=== PATIENT | male | born 1930 | race Two or more races ===

== ENCOUNTER 2020-04-18 20:44 | Inpatient (IN) | payer MEDICARE, MEDICAID ==
[~2020-04-18] VITALS: Ht 185.4 cm; Wt 69.6 kg
[2020-04-18] MEDS ORDERED: ONDANSETRON HCL 4 MG/2 ML VIAL IVP PRN ×2 (22:00→22:15)
[2020-04-18] MEDS ORDERED: 0.9% SODIUM CHLORIDE 10 ML SYRINGE IVP PRN (22:00)
[2020-04-18] MEDS ORDERED: ACETAMINOPHEN 325 MG TABLET PO PRN ×2 (22:00→22:15)
[2020-04-18] MEDS ORDERED: MAGNESIUM HYDROXIDE SUSPENSION 30 ML UDCUP PO PRN (22:15)
[2020-04-18] MEDS ORDERED: MORPHINE SULFATE 2 MG/ML SYRINGE IVP PRN (22:15)
[2020-04-18] MEDS ORDERED: BISACODYL 10 MG RECTAL RECTAL SUPPOSITORY PR PRN (22:15)
[2020-04-18] MEDS ORDERED: HYDROCODONE/ACETAMINOPHEN 5-325 MG TABLET PO PRN (22:15)
[2020-04-18] MEDS ORDERED: ZOLPIDEM TARTRATE 5 MG TABLET PO PRN (22:15)
[2020-04-18 23:19] LABS: BASOPHILS % (AUTO) 0.2 % (0.0-2.0); EOSINOPHILS % (AUTO) 0 % (1.0-6.0); HEMOGLOBIN 18.8 g/dL (13.5-17.5); LYMPHOCYTES # (AUTO) 0.9 K/uL (1.0-4.8); LYMPHOCYTES % (AUTO) 4.4 % (22.0-44.0); MEAN CORPUSCULAR HEMOGLOBIN 29.1 pg (26.0-34.0); MEAN CORPUSCULAR HGB CONC 31.6 G/dL (31.0-37.0); MEAN CORPUSCULAR VOLUME 92 fL (80-100); MONOCYTES # (AUTO) 1.1 K/uL (0.1-1.0); MONOCYTES % (AUTO) 5.1 % (2.0-9.0); NEUTROPHILS # (AUTO) 18.6 K/uL (1.8-7.7); RED BLOOD CELL COUNT(AUTO) 6.48 MIL/uL (4.50-5.90); RED CELL DISTRIBUTION WIDTH 14.9 % (11.5-14.5)
[2020-04-18 23:24] LABS: HEMATOCRIT 59.5 % (41-53); NEUTROPHILS % (AUTO) 90.3 % (40.0-70.0)
[2020-04-18 23:44] LABS: C-REACTIVE PROTEIN QUANT 2.22 mg/dL (0.00-0.30); CALCIUM, TOTAL 8.6 mg/dL (8.8-10.5); CREATININE 2.95 mg/dL (0.60-1.30); POTASSIUM 3.6 mmol/L (3.5-5.1)
[2020-04-19] VITALS (9 sets, daily range): BP systolic 106–122; BP diastolic 54–72
[2020-04-19] MEDS ORDERED: HEPARIN SODIUM,PORCINE 5,000 UNITS/ML VIAL SQ SCH
[2020-04-19 00:26] LABS: PLATELET COUNT (AUTO) 102 K/uL (150-450)
[2020-04-19 00:37] LABS: ABG A-A DIFF O2 135.5 mmHg (10-20.0); ABG BASE EXCESS -2.3 mmol/L (-2.0-3.0); ABG CARBOXYHEMOGLOBIN 0.3 % (0.0-1.5); ABG HCO3 22.9 mmol/L (22.0-26.0); ABG METHEMOGLOBIN 0.6 % (0.0-1.5); ABG OXYGEN CONTENT 27.9 mL/dL (15.0-23.0); ABG OXYGEN SATURATION 96.2 % (95.0-98.0); ABG OXYHEMOGLOBIN 95.3 % (94.0-100.0); ABG PCO2 38 mmHg (35-45); ABG PH 7.389 (7.35-7.450); PO2, ARTERIAL BG 76.9 mmHg (71.0-79.0); SOURCE, BLOOD GAS ARTERIAL; TEMPERATURE, FAHRENHEIT, BG 98.3 FAHREN (96.0-98.6)
[2020-04-19 00:39] LABS: ABG TOTAL HEMOGLOBIN 20.9 G/dL (12.0-18.0); SITE, BLOOD GAS LFT RADIAL
[2020-04-19 00:40] LABS: O2 DEVICE,BLOOD GAS CANNULA (ROOM AIR)
[2020-04-19] MEDS: DEXTROSE 5%-WATER 1,000 ML IV SCH ×2 (01:35→16:41)
[2020-04-19] MEDS ORDERED: HEPARIN SODIUM 25000 UNITS/D5W 250 ML IV PRN (07:35)
[2020-04-19] MEDS ORDERED: HEPARIN SODIUM,PORCINE 5,000 UNITS/ML VIAL IVP PRN ×2 (07:45)
[2020-04-19] MEDS: DOCUSATE SODIUM 100 MG CAPSULE PO SCH ×2 (09:00→21:00)
[2020-04-19] MEDS: ASCORBIC ACID 500 MG TABLET PO SCH ×3 (09:00→21:00)
[2020-04-19] MEDS ORDERED: AZITHROMYCIN 500 MG TABLET PO SCH (09:00)
[2020-04-19] MEDS ORDERED: PANTOPRAZOLE SODIUM 40 MG DR TABLET PO SCH (09:00)
[2020-04-19] MEDS: ZINC SULFATE 220 MG CAPSULE PO SCH ×2 (09:00→21:00)
[2020-04-19 09:06] LABS: INR 1.7 (0.9-1.1); PROTHROMBIN TIME 17.2 SEC (9.4-11.6)
[2020-04-19 09:09] LABS: GLUCOSE,POINT OF CARE 169 MG/DL (70-110)
[2020-04-19 09:11] LABS: HEMOGLOBIN 18.7 g/dL (13.5-17.5); RED BLOOD CELL COUNT(AUTO) 6.47 MIL/uL (4.50-5.90)
[2020-04-19 09:12] LABS: BASOPHILS % (AUTO) 0.4 % (0.0-2.0); EOSINOPHILS % (AUTO) 0.2 % (1.0-6.0); HEMATOCRIT 63.7 % (41-53); LYMPHOCYTES % (AUTO) 4.1 % (22.0-44.0); MEAN CORPUSCULAR HEMOGLOBIN 28.9 pg (26.0-34.0); MEAN CORPUSCULAR HGB CONC 31.4 G/dL (31.0-37.0); MEAN CORPUSCULAR VOLUME 92 fL (80-100); MONOCYTES % (AUTO) 6.1 % (2.0-9.0); NEUTROPHILS % (AUTO) 89.2 % (40.0-70.0); PLATELET COUNT (AUTO) 101 K/uL (150-450)
[2020-04-19 09:13] LABS: LYMPHOCYTES # (AUTO) 0.9 K/uL (1.0-4.8); MONOCYTES # (AUTO) 1.3 K/uL (0.1-1.0); NEUTROPHILS # (AUTO) 18.4 K/uL (1.8-7.7)
[2020-04-19] MEDS: THIAMINE 100 MG/ML 2 ML VIAL IVP SCH ×2 (10:36→21:00)
[2020-04-19] MEDS: PANTOPRAZOLE SODIUM 40 MG/VIAL IVP SCH (10:36)
[2020-04-19] MEDS: AZITHROMYCIN 500 MG/NS 250 ML IV SCH (10:36)
[2020-04-19 11:09] LABS: ALBUMIN 2.9 g/dL (3.4-5.0); C-REACTIVE PROTEIN QUANT 3.59 mg/dL (0.00-0.30); CALCIUM, TOTAL 9.1 mg/dL (8.8-10.5); CREATININE 2.45 mg/dL (0.60-1.30); MAGNESIUM 2.8 mg/dL (1.80-2.40); PHOSPHORUS 2.7 mg/dL (2.5-4.9); POTASSIUM 3.7 mmol/L (3.5-5.1); TOTAL PROTEIN, SERUM 6.8 g/dL (6.4-8.2)
[2020-04-19 12:01] LABS: GLUCOSE,POINT OF CARE 167 MG/DL (70-110)
[2020-04-19 12:04] LABS: BILIRUBIN,URINE NEGATIVE (NEGATIVE); CREATININE,URINE RANDOM 104.3 mg/dL (30.0-125.0); GLUCOSE, URINE (UA) NEGATIVE (NEGATIVE); KETONES,URINE NEGATIVE (NEGATIVE); LEUKOCYTE ESTERASE ,URINE NEGATIVE (NEGATIVE); NITRATE,URINE NEGATIVE (NEGATIVE); PROTEIN,URINE POS 1+ (NEGATIVE); SODIUM,URINE RANDOM 34 mmol/l (20-110); UREA NITROGEN,URINE RANDOM 1319 mg/dL (350-1000); UROBILINOGEN,URINE 0.2 mg/dL (<=1.0)
[2020-04-19 12:07] LABS: APPEARANCE,URINE HAZY (CLEAR); OCCULT BLOOD,URINE MODERATE (NEGATIVE)
[2020-04-19 12:08] LABS: BACTERIA,URINE Rare /HPF (None Seen); TRANSITIONAL EPI CELLS,URINE Rare /LPF (None Seen); WBC,URINE 0-2 /HPF (0-5)
[2020-04-19 19:19] LABS: GLUCOSE,POINT OF CARE 182 MG/DL (70-110)
[2020-04-19 21:11] LABS: CREATININE 1.97 mg/dL (0.60-1.30); POTASSIUM 3.6 mmol/L (3.5-5.1)
[2020-04-19 21:12] LABS: CALCIUM, TOTAL 9.1 mg/dL (8.8-10.5); MAGNESIUM 2.7 mg/dL (1.80-2.40); PHOSPHORUS 2.2 mg/dL (2.5-4.9)
[2020-04-20] VITALS (20 sets, daily range): BP systolic 103–127; BP diastolic 50–76
[2020-04-20] MEDS: DEXTROSE 5%-WATER 1,000 ML IV SCH ×3 (00:02→21:52)
[2020-04-20 06:55] LABS: BASOPHILS % (AUTO) 0.3 % (0.0-2.0); EOSINOPHILS % (AUTO) 0.5 % (1.0-6.0); HEMATOCRIT 54.1 % (41-53); HEMOGLOBIN 17.4 g/dL (13.5-17.5); LYMPHOCYTES # (AUTO) 0.9 K/uL (1.0-4.8); LYMPHOCYTES % (AUTO) 5.3 % (22.0-44.0); MEAN CORPUSCULAR HGB CONC 32.2 G/dL (31.0-37.0); MEAN CORPUSCULAR VOLUME 90 fL (80-100); MONOCYTES # (AUTO) 0.8 K/uL (0.1-1.0); NEUTROPHILS # (AUTO) 14.4 K/uL (1.8-7.7); RED BLOOD CELL COUNT(AUTO) 6.01 MIL/uL (4.50-5.90)
[2020-04-20 07:02] LABS: NEUTROPHILS % (AUTO) 88.9 % (40.0-70.0)
[2020-04-20 07:46] LABS: CALCIUM, TOTAL 8.7 mg/dL (8.8-10.5); CREATININE 1.57 mg/dL (0.60-1.30); MAGNESIUM 2.5 mg/dL (1.80-2.40); PHOSPHORUS 1.8 mg/dL (2.5-4.9); POTASSIUM 3.4 mmol/L (3.5-5.1)
[2020-04-20] MEDS ORDERED: POTASSIUM PHOS,M-BASIC-D-BASIC 10 MEQ in DEXTROSE 5%-WATER 100 ML IV ONE (08:45)
[2020-04-20 08:49] LABS: PLATELET COUNT (AUTO) 92 K/uL (150-450)
[2020-04-20] MEDS: PANTOPRAZOLE SODIUM 40 MG/VIAL IVP SCH (08:56)
[2020-04-20] MEDS: DOCUSATE SODIUM 100 MG CAPSULE PO SCH ×2 (09:00→21:00)
[2020-04-20] MEDS: ZINC SULFATE 220 MG CAPSULE PO SCH ×2 (09:00→21:00)
[2020-04-20] MEDS: ASCORBIC ACID 500 MG TABLET PO SCH ×3 (09:30→21:00)
[2020-04-20] MEDS: THIAMINE 100 MG/ML 2 ML VIAL IVP SCH ×2 (09:30→21:52)
[2020-04-20 09:57] LABS: D-DIMER 15.88 mg/L FEU (0.00-0.50)
[2020-04-20 10:02] LABS: C-REACTIVE PROTEIN QUANT 2.07 mg/dL (0.00-0.30)
[2020-04-20] MEDS: AZITHROMYCIN 500 MG/NS 250 ML IV SCH (12:22)
[2020-04-20 20:24] LABS: CALCIUM, TOTAL 8.3 mg/dL (8.8-10.5); CREATININE 1.39 mg/dL (0.60-1.30); POTASSIUM 3.5 mmol/L (3.5-5.1)
[2020-04-20 20:28] LABS: MAGNESIUM 2.3 mg/dL (1.80-2.40); PHOSPHORUS 2.5 mg/dL (2.5-4.9)
[2020-04-21] VITALS (24 sets, daily range): BP systolic 92–152; BP diastolic 46–72
[2020-04-21] MEDS: DEXTROSE 5%-WATER 1,000 ML IV SCH ×2 (06:38→16:55)
[2020-04-21 06:54] LABS: CALCIUM, TOTAL 8.2 mg/dL (8.8-10.5); CREATININE 1.3 mg/dL (0.60-1.30); MAGNESIUM 2.1 mg/dL (1.80-2.40); PHOSPHORUS 2.3 mg/dL (2.5-4.9); POTASSIUM 3.3 mmol/L (3.5-5.1)
[2020-04-21 07:07] LABS: D-DIMER 18.17 mg/L FEU (0.00-0.50)
[2020-04-21 07:26] LABS: GLUCOSE,POINT OF CARE 117 MG/DL (70-110)
[2020-04-21] MEDS ORDERED: POTASSIUM PHOS,M-BASIC-D-BASIC 20 MEQ in DEXTROSE 5%-WATER 100 ML IV ONE (08:45)
[2020-04-21] MEDS: ZINC SULFATE 220 MG CAPSULE PO SCH ×2 (09:00→21:00)
[2020-04-21] MEDS: ASCORBIC ACID 500 MG TABLET PO SCH ×3 (09:00→21:00)
[2020-04-21] MEDS: DOCUSATE SODIUM 100 MG CAPSULE PO SCH ×2 (09:00→21:00)
[2020-04-21] MEDS: HEPARIN SODIUM,PORCINE 5,000 UNITS/ML VIAL SQ SCH ×2 (09:00→21:00)
[2020-04-21] MEDS: PANTOPRAZOLE SODIUM 40 MG/VIAL IVP SCH (09:23)
[2020-04-21 09:25] LABS: BASOPHILS % (AUTO) 0.1 % (0.0-2.0); EOSINOPHILS % (AUTO) 1.1 % (1.0-6.0); HEMATOCRIT 46.7 % (41-53); HEMOGLOBIN 15.3 g/dL (13.5-17.5); LYMPHOCYTES # (AUTO) 0.8 K/uL (1.0-4.8); LYMPHOCYTES % (AUTO) 7.4 % (22.0-44.0); MEAN CORPUSCULAR HEMOGLOBIN 29.5 pg (26.0-34.0); MEAN CORPUSCULAR HGB CONC 32.9 G/dL (31.0-37.0); MEAN CORPUSCULAR VOLUME 90 fL (80-100); MONOCYTES # (AUTO) 0.5 K/uL (0.1-1.0); MONOCYTES % (AUTO) 4.2 % (2.0-9.0); NEUTROPHILS # (AUTO) 9.7 K/uL (1.8-7.7); PLATELET COUNT (AUTO) 76 K/uL (150-450); RED CELL DISTRIBUTION WIDTH 14.9 % (11.5-14.5)
[2020-04-21 09:43] LABS: NEUTROPHILS % (AUTO) 87.2 % (40.0-70.0)
[2020-04-21 09:44] LABS: ALBUMIN 2.4 g/dL (3.4-5.0); BILIRUBIN,TOTAL 2.4 mg/dL (0.1-1.0); CALCIUM, TOTAL 8.2 mg/dL (8.8-10.5); CREATININE 1.24 mg/dL (0.60-1.30); POTASSIUM 3.3 mmol/L (3.5-5.1); TOTAL PROTEIN, SERUM 5.5 g/dL (6.4-8.2)
[2020-04-21] MEDS: AZITHROMYCIN 500 MG/NS 250 ML IV SCH (11:20)
[2020-04-21] MEDS: THIAMINE 100 MG/ML 2 ML VIAL IVP SCH ×2 (11:20→21:10)
[2020-04-21 17:14] LABS: GLUCOSE,POINT OF CARE 107 MG/DL (70-110)
[2020-04-22 00:01] VITALS: BP 142/59
[2020-04-22 01:52] VITALS: BP 119/63
[2020-04-22 03:12] VITALS: BP 156/107
[2020-04-22] MEDS: DEXTROSE 5%-WATER 1,000 ML IV SCH ×2 (05:50→21:52)
[2020-04-22] MEDS: ASCORBIC ACID 500 MG TABLET PO SCH ×3 (09:00→21:00)
[2020-04-22] MEDS: ZINC SULFATE 220 MG CAPSULE PO SCH ×2 (09:00→21:00)
[2020-04-22] MEDS: DOCUSATE SODIUM 100 MG CAPSULE PO SCH ×2 (09:00→21:00)
[2020-04-22] MEDS: PANTOPRAZOLE SODIUM 40 MG/VIAL IVP SCH (09:23)
[2020-04-22] MEDS: HEPARIN SODIUM,PORCINE 5,000 UNITS/ML VIAL SQ SCH ×2 (09:23→21:00)
[2020-04-22] MEDS: THIAMINE 100 MG/ML 2 ML VIAL IVP SCH ×2 (09:23→21:00)
[2020-04-22 09:45] VITALS: BP 131/77
[2020-04-22 11:29] LABS: D-DIMER 26.19 mg/L FEU (0.00-0.50)
[2020-04-22 11:52] LABS: C-REACTIVE PROTEIN QUANT 1.17 mg/dL (0.00-0.30); CALCIUM, TOTAL 8.3 mg/dL (8.8-10.5); CREATININE 1.17 mg/dL (0.60-1.30); PHOSPHORUS 2.1 mg/dL (2.5-4.9); POTASSIUM 3.5 mmol/L (3.5-5.1)
[2020-04-22] MEDS: AZITHROMYCIN 500 MG/NS 250 ML IV SCH (12:18)
[2020-04-22] MEDS ORDERED: SODIUM PHOS,M-BASIC-D-BASIC 20 MMOL in DEXTROSE 5%-WATER 150 ML IV ONE (13:30)
[2020-04-22 16:31] LABS: CREATININE,URINE RANDOM 31.9 mg/dL (30.0-125.0)
[2020-04-22 21:14] VITALS: BP 110/64
[2020-04-23 01:07] VITALS: BP 155/81
[2020-04-23 05:31] VITALS: BP 167/61
[2020-04-23] MEDS: ZINC SULFATE 220 MG CAPSULE PO SCH ×2 (09:00→20:41)
[2020-04-23] MEDS: DOCUSATE SODIUM 100 MG CAPSULE PO SCH ×2 (09:00→20:41)
[2020-04-23] MEDS: ASCORBIC ACID 500 MG TABLET PO SCH ×3 (09:00→20:41)
[2020-04-23 09:03] LABS: BASOPHILS % (AUTO) 0.2 % (0.0-2.0); EOSINOPHILS % (AUTO) 1.9 % (1.0-6.0); HEMOGLOBIN 14.8 g/dL (13.5-17.5); LYMPHOCYTES # (AUTO) 0.8 K/uL (1.0-4.8); LYMPHOCYTES % (AUTO) 8.1 % (22.0-44.0); MEAN CORPUSCULAR HEMOGLOBIN 29.7 pg (26.0-34.0); MEAN CORPUSCULAR HGB CONC 33.6 G/dL (31.0-37.0); MEAN CORPUSCULAR VOLUME 89 fL (80-100); MONOCYTES # (AUTO) 0.8 K/uL (0.1-1.0); MONOCYTES % (AUTO) 8.6 % (2.0-9.0); NEUTROPHILS # (AUTO) 7.5 K/uL (1.8-7.7); NEUTROPHILS % (AUTO) 81.2 % (40.0-70.0); PLATELET COUNT (AUTO) 95 K/uL (150-450); RED BLOOD CELL COUNT(AUTO) 4.98 MIL/uL (4.50-5.90); RED CELL DISTRIBUTION WIDTH 14.2 % (11.5-14.5)
[2020-04-23 09:09] VITALS: BP 155/67
[2020-04-23] MEDS: PANTOPRAZOLE SODIUM 40 MG/VIAL IVP SCH (09:23)
[2020-04-23] MEDS: DEXTROSE 5%-WATER 1,000 ML IV SCH ×2 (09:23→21:47)
[2020-04-23] MEDS: THIAMINE 100 MG/ML 2 ML VIAL IVP SCH ×2 (09:23→21:46)
[2020-04-23] MEDS: HEPARIN SODIUM,PORCINE 5,000 UNITS/ML VIAL SQ SCH (09:23)
[2020-04-23 09:27] LABS: D-DIMER 8.1 mg/L FEU (0.00-0.50)
[2020-04-23 09:54] LABS: ANION GAP 8 mmol/L (8-16); C-REACTIVE PROTEIN QUANT 2.01 mg/dL (0.00-0.30); CALCIUM, TOTAL 8.4 mg/dL (8.8-10.5); CARBON DIOXIDE 26 mmol/L (22-29); CHLORIDE 108 mmol/L (98-107); CREATININE 1.04 mg/dL (0.60-1.30); FERRITIN 1245 ng/mL (26-388); GLUCOSE,RANDOM 104 mg/dL (70-110); LACTATE DEHYDROGENASE 265 U/L (85-227); PHOSPHORUS 2.8 mg/dL (2.5-4.9); POTASSIUM 3.2 mmol/L (3.5-5.1); SODIUM SERUM 142 mmol/L (136-145); UREA NITROGEN, BLOOD 15 mg/dL (7-18)
[2020-04-23 09:55] LABS: GLOMERULAR FILTR. RATE CALC > 60 mL/min (>60)
[2020-04-23] MEDS: APIXABAN 5 MG TABLET PO SCH ×2 (11:45→20:41)
[2020-04-23] MEDS ORDERED: POTASSIUM CHLORIDE 10% 40 MEQ/30 ML LIQUID UDCUP PO ONE (14:15)
[2020-04-23 15:29] VITALS: BP 158/59
[2020-04-23] MEDS ORDERED: POTASSIUM CHL 10 MEQ/WATER 50 ML IV SCH (17:45)
[2020-04-23] MEDS: POTASSIUM CHL 10 MEQ/WATER 50 ML IV SCH ×4 (18:19→23:16)
[2020-04-23 21:12] VITALS: BP 118/67
[2020-04-24 04:52] VITALS: BP 125/72
[2020-04-24] MEDS: ASCORBIC ACID 500 MG TABLET PO SCH ×2 (09:49→16:00)
[2020-04-24] MEDS: DOCUSATE SODIUM 100 MG CAPSULE PO SCH (09:49)
[2020-04-24] MEDS: ZINC SULFATE 220 MG CAPSULE PO SCH (09:49)
[2020-04-24] MEDS: PANTOPRAZOLE SODIUM 40 MG/VIAL IVP SCH (09:50)
[2020-04-24] MEDS: APIXABAN 5 MG TABLET PO SCH (09:50)
[2020-04-24] MEDS: THIAMINE 100 MG/ML 2 ML VIAL IVP SCH (09:50)
[2020-04-24] MEDS ORDERED: ZINC220C14 PO (10:24)
[2020-04-24] MEDS ORDERED: APIX5TAB PO (10:24)
== END 2020-04-24 17:50 | disposition home or self-care (01) | DRG 871 ==
LOC: EMS 20:46 → ICUN 22:23 → UNDOADMIN 22:23 → ICUN 04-19 03:45 → UNDOADMIN 04-19 03:45 → 5N 04-22 00:25
PROVIDERS: ADMIT Internal Medicine; ATTEND Internal Medicine
DX: A41.9 Sepsis, unspecified organism (principal); U07.1 COVID-19; J12.89 Other viral pneumonia; E43 Unspecified severe protein-calorie malnutrition; J96.91 Respiratory failure, unspecified with hypoxia; N17.9 Acute kidney failure, unspecified; E87.0 Hyperosmolality and hypernatremia; E87.2 Acidosis; D68.59 Other primary thrombophilia; E87.1 Hypo-osmolality and hyponatremia; G93.40 Encephalopathy, unspecified; I82.411 Acute embolism and thrombosis of right femoral vein; E86.0 Dehydration; Z68.20 Body mass index [BMI] 20.0-20.9, adult; E87.6 Hypokalemia; F01.50 Vascular dementia, unspecified severity, without behavioral disturbance, psychotic disturbance, mood disturbance, and anxiety; D69.6 Thrombocytopenia, unspecified; I49.5 Sick sinus syndrome; I10 Essential (primary) hypertension; R62.7 Adult failure to thrive; R65.20 Severe sepsis without septic shock; Z99.81 Dependence on supplemental oxygen
CPT/HCPCS: 36600; 82271; 82570; 82728; 82805; 83615; 83735; 84100; 84145; 84300; 84540; 85379; 85384; 86140; 86850; 86900; 86901; 87081; 92610; 93005; 93306; 93970; C9113; G0378; J0456; J1644; J3411; J3480; J3490; J7060